=== PATIENT | female | born 1980 | race African-American/Black ===

== ENCOUNTER 2016-12-24 16:55 | Emergency (ER) | payer OTHER ==
[2016-12-24 17:00] VITALS: BP 132/76; PULSE 81; TEMP 98; BMI 38.9
--- NOTE | 2016-12-24 17:29 | PDOC ---
Attending Attestation - Resident Resident Name: Jose Blackmon - HPI HPI: 12/24/16 23:17 36-year-old woman who presents to the emergency department with a long-standing history of dysfunctional uterine bleeding. She was supposed to get a CAT scan done December 11 of abdomen and pelvis, but did not keep her appointment. She has a history of PID, tubo-ovarian abscess and she is to get a CAT scan to rule out those out - Physicial Exam PE: 12/24/16 23:19 36-year-old female presents with chronic vaginal bleeding and some abdominal pain HEENT within normal limits Lungs are clear to auscultation bilaterally CVS regular rate and rhythm S1, S2 Abdomen obese, nontender, nondistended. No rebound or guarding Extremities within normal limits Skin warm, no rashes Neurologically alert and oriented 3, ambulating with ease - Medical Decision Making 12/24/16 17:56 Labs reviewed. Patient is not . CAT scan of her abdomen and pelvis do not find any acute abdominal or pelvic pathology. 12/24/16 23:18
--- NOTE | 2016-12-24 17:58 | PDOC ---
History of Present Illness - General Chief Complaint: Pain Stated Complaint: vag bleed / STOMACH PAIN Time Seen by Provider: 12/24/16 17:13 - History of Present Illness Initial Comments: 12/24/16 17:56 36 yo [id number] with h/o tuboovarian abscess, and PID who presents with metomennorhagia. Pt. endorses heavy menstrual bleeding for past month following absence of menstruation for previous 7 months. Uses 3-4 pads/day. complains of chronic crampy lower abdominal pain. Complains of right sided chest pain Denies N/V, fevers/chillls, wt. loss, constipation/diarrhea, blood in stool, dysuria, urinary incontinence, back pain, flank pain. Pain not alleivated with OTC Tylenol. Sexually active for last 3 months with one male sexual partner. No condom use. Denies h/o STI's. Pt. with h/o caesarean section x 3. No other abdominal surgeries. Pt . reports that she was scheduled to have CT Abdomen performed at outside [facility] ( 12/11/16) for abnormal MRI findings of multiple cysts on right adenexa. She reuqests CT abdomen/pelvis scan. Past History - Past Medical History Allergies/Adverse Reactions: Allergies Allergy/AdvReac Type Severity Reaction Status Date / Time No Known Allergies Allergy Verified 12/24/16 16:56 Home Medications: Ambulatory Orders Wheat Dextrin [Benefiber] 1 each PO TID #0 powd.pack 09/27/15 GI Disorders: Yes (GERD) Disorders: Yes (OVARIAN CYST) - Reproductive History Is Patient Now?: Yes (#): 5 Para: 3 Cervical CA: No Dysfunctional Uterine Bleeding: No Ectopic : No Endometrial CA: No Polycystic Ovaries: No Therapeutic (s) & number: Yes (2) Tubal Ligation: No - Immunization History Immunization Up to Date: Yes - Psycho/Social/Smoking Cessation Hx Anxiety: No Suicidal Ideation: No Smoking History: Never smoked Have you smoked in the past 12 months: No Information on smoking cessation initiated: No Hx Alcohol Use: No Drug/Substance Use Hx: No Substance Use Type: None Review of Systems - Review of Systems Comments:: 12/24/16 18:16 GENERAL/CONSTITUTIONAL: No fever or chills. No weakness. HEAD, EYES, EARS, NOSE AND THROAT: No change in vision. No ear pain or discharge. No sore throat.- CARDIOVASCULAR: + chest pain. No shortness of breath RESPIRATORY: No cough, wheezing, or hemoptysis. GASTROINTESTINAL: + Abdominal pain. No nausea, vomiting, diarrhea or constipation. GENITOURINARY: + Mennorhagia. No dysuria, frequency, or change in urination. MUSCULOSKELETAL: No joint or muscle swelling or pain. No neck or back pain. SKIN: No rash NEUROLOGIC: No headache, vertigo, loss of consciousness, or change in strength/ sensation. ENDOCRINE: No increased thirst. No abnormal weight change HEMATOLOGIC/LYMPHATIC: No anemia, easy bleeding, or history of blood clots. ALLERGIC/IMMUNOLOGIC: No hives or skin allergy. Cardiac (ROS): Yes: Chest Pain ABD/GI: Yes: Abdominal cramping *Physical Exam - Vital Signs Last Vital Signs Temp Pulse Resp BP Pulse Ox 98.0 F 81 16 132/76 100 12/24/16 16:58 12/24/16 16:58 12/24/16 16:58 12/24/16 16:58 12/24/16 16:58 - Physical Exam General Appearance: Yes: Nourished, Appropriately Dressed, Obese HEENT: positive: EOMI, DEANNA, Normal ENT Inspection Neck: positive: Tender, Trachea midline, Normal Thyroid, Supple Respiratory/Chest: positive: Lungs Clear, Normal Breath Sounds Cardiovascular: positive: Regular Rhythm, Regular Rate Gastrointestinal/Abdominal: positive: Normal Bowel Sounds Musculoskeletal: positive: Normal Inspection. negative: CVA Tenderness Extremity: positive: Normal Capillary Refill, Normal Inspection, Normal Range of Motion Integumentary: positive: Normal Color, Dry, Warm ED Treatment Course - LABORATORY CBC & Chemistry Diagram: 12/24/16 18:30 12/24/16 18:30 - RADIOLOGY Radiology Studies Ordered: Category Date Time Status ABDOMEN & PELVIS CT W/O CONTR [CT] Stat CT Scan 12/24/16 17:51 Ordered Medical Decision Making - Medical Decision Making 12/24/16 18:21 36 yo [id number] with h/o tuboovarian abscess, and PID who presents with metomennorhagia. Pt. endorses heavy menstrual bleeding for past month following absence of menstruation for previous 7 months. Bleeding associated with diffuse lower abdominal pain. Physical exam findings, Recently scheduled to have CT Abdomen performed at outside facility ( 12/11/16) for abnormal MRI findings of multiple cysts on right adenexa. She requests CT abdomen/pelvis scan. 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
[2016-12-24 18:38] LABS: BASOPHIL 0.9 % (0-2.0); EOSINOPHIL 2.3 % (0-4.5); MCH 25.8 pg (25.7-33.7); MCHC 32.7 g/dl (32.0-36.0); MEAN PLT VOLUME 7.7 fl (7.5-11.1); NEUTROPHILS 56.2 % (42.8-82.8); PLATELET COUNT 364 K/MM3 (134-434); RDW 14.9 % (11.6-15.6); WHITE BLOOD COUNT 6.8 K/mm3 (4.0-10.0)
[2016-12-24 18:50] LABS: URINE APPEARANCE CLOUDY; URINE BILIRUBIN NEGATIVE (NEGATIVE); URINE BLOOD 3+ (NEGATIVE); URINE COLOR RED; URINE GLUCOSE (UA) NEGATIVE (NEGATIVE); URINE KETONE NEGATIVE (NEGATIVE); URINE LEUK ESTERASE TRACE (NEGATIVE); URINE NITRITE NEGATIVE (NEGATIVE); URINE UROBILINOGEN NEGATIVE mg/dL (0.2-1.0)
[2016-12-24 19:04] LABS: ALBUMIN 3.9 g/dl (3.4-5.0); ANION GAP 7 (8-16); BILIRUBIN,TOTAL 0.2 mg/dL (0.2-1.0); CALCIUM 8.7 mg/dL (8.5-10.1); CO2 26 mmol/L (21-32); CREATININE 0.7 mg/dL (0.55-1.02); GLUCOSE,RANDOM 91 mg/dL (74-106); SGOT/AST 24 U/L (15-37); SGPT/ALT 35 U/L (12-78); TOT PROT 7.2 g/dl (6.4-8.2)
[2016-12-24 19:05] LABS: ALK PHOS 79 U/L (45-117)
[2016-12-24 19:09] LABS: URINE PROTEIN 2+ (NEGATIVE)
[2016-12-24 19:56] LABS: URINE MUCUS RARE; URINE RBC 8462 /hpf (0-3)
--- NOTE | 2016-12-24 23:30 | PDOC ---
*Physical Exam - Vital Signs Last Vital Signs Temp Pulse Resp BP Pulse Ox 98.0 F 81 16 132/76 100 12/24/16 16:58 12/24/16 16:58 12/24/16 16:58 12/24/16 16:58 12/24/16 16:58 ED Treatment Course - LABORATORY CBC & Chemistry Diagram: 12/24/16 18:30 12/24/16 18:30 - ADDITIONAL ORDERS Additional order review: Laboratory Results 12/24/16 12/24/16 12/24/16 18:33 18:33 18:30 Sodium Potassium Chloride Carbon Dioxide Anion Gap BUN Creatinine Creat Clearance w eGFR Random Glucose Calcium Total Bilirubin AST ALT Alkaline Phosphatase Total Protein Albumin Lipase TSH 1.30 Urine Color Red Urine Appearance Cloudy Urine pH 6.0 Ur Specific [place] >= 1.030 H Urine Protein 2+ H Urine Glucose (UA) Negative Urine Ketones Negative Urine Blood 3+ H Urine Nitrite Negative Urine Bilirubin Negative Urine Urobilinogen Negative Ur Leukocyte Esterase Trace Urine RBC 8462 Urine WBC None Ur Epithelial Cells Rare Urine Mucus Rare Urine HCG, Qual Negative 12/24/16 12/24/16 18:30 18:30 Sodium 138 Potassium 3.7 Chloride 105 Carbon Dioxide 26 Anion Gap 7 L BUN 6 L D Creatinine 0.7 D Creat Clearance w eGFR > 60 Random Glucose 91 Calcium 8.7 Total Bilirubin 0.2 D AST 24 D ALT 35 D Alkaline Phosphatase 79 Total Protein 7.2 D Albumin 3.9 D Lipase 243 TSH Urine Color Urine Appearance Urine pH Ur Specific [place] Urine Protein Urine Glucose (UA) Urine Ketones Urine Blood Urine Nitrite Urine Bilirubin Urine Urobilinogen Ur Leukocyte Esterase Urine RBC Urine WBC Ur Epithelial Cells Urine Mucus Urine HCG, Qual 12/24/16 18:30 RBC 4.03 MCV 79.0 L MCHC 32.7 RDW 14.9 MPV 7.7 D Neutrophils % 56.2 D Lymphocytes % 34.0 D Monocytes % 6.6 D Eosinophils % 2.3 D Basophils % 0.9 D - RADIOLOGY Radiology Studies Ordered: Category Date Time Status ABDOMEN & PELVIS CT WITH CONTR [CT] Stat CT Scan 12/24/16 20:10 Completed *DC/Admit/Observation/Transfer Diagnosis at time of Disposition: Pelvic pain Abdominal pain Qualifiers: Abdominal location: lower abdomen, unspecified Qualified Code(s): R10.30 - Lower abdominal pain, unspecified - Discharge Dispostion Disposition: HOME Condition at time of disposition: Stable - Patient Instructions Printed Discharge Instructions: DI for Vaginal Bleeding, DI for Pelvic Pain Additional Instructions: PLEASE FOLLOW UP WITH YOUR [employer]UCC[employer] WORKER and plese take your ct scan with you when you go to the office
--- NOTE | 2016-12-25 11:40 | EKG ---
Test Reason : Blood Pressure : / mmHG Vent. Rate : 070 BPM Atrial Rate : 070 BPM P-R Int : 172 ms QRS Dur : 082 ms QT Int : 426 ms P-R-T Axes : 018 040 012 degrees QTc Int : 460 ms NORMAL SINUS RHYTHM NORMAL ECG NO PREVIOUS ECGS AVAILABLE Confirmed by SEBASTIÁN AHMADI, TUNDE ([id number]) on 12/25/2016 11:40:00 AM Referred By: Confirmed By:TUNDE LOWERY MD
== END 2016-12-25 00:18 | disposition home or self-care (01) ==
LOC: JER 16:55
DX: N92.1 Excessive and frequent menstruation with irregular cycle (principal); Z87.42 Personal history of other diseases of the female genital tract
CPT/HCPCS: 36415; 74177-TC; 80053; 81003; 81015; 83690; 84443; 84703; 85025; 93005; 93010; 99284-25

== ENCOUNTER 2017-01-07 10:28 | Day surgery (SDC) | payer OTHER ==
[2017-01-06 13:18] VITALS: BMI 40.2
[2017-01-07] MEDS ORDERED: PROPOFOL 20 ML ONE ×3 (12:22)
[2017-01-07] MEDS ORDERED: DEXAMETHASONE SOD PHOSPHATE 4 MG/1 ML VIAL ONE (12:23)
[2017-01-07] MEDS ORDERED: KETOROLAC TROMETHAMINE 30 MG/1 ML VIAL ONE ×2 (12:23→12:43)
[2017-01-07] MEDS ORDERED: MIDAZOLAM HCL 2 MG/2 ML SINGLE DOSE VIAL ONE ×2 (12:27)
[2017-01-07] MEDS ORDERED: oxyCODONE HCL 5 MG TABLET PO PRN ×2 (12:33→13:48)
[2017-01-07] MEDS ORDERED: ONDANSETRON 4 MG/2 ML VIAL IVPUSH PRN (12:33)
[2017-01-07] MEDS ORDERED: PROMETHAZINE HCL 25 MG/1 ML VIAL IVPUSH PRN (12:33)
[2017-01-07] MEDS ORDERED: LACTATED RINGERS SOLUTION 1,000 ML IV SCH (12:45)
--- NOTE | 2017-01-07 12:53 | HP ---
Past Medical History - Primary Care Physician PCP:: Jay Munoz - Admission Chief Complaint: menometrorrhagia, anemia, r/o EM polyp, lt bartholin cyst History of Present Illness: 36yo f with hx of menometrorrhagia, anemia, with visits to ER for heavy vaginal bleding admitted for hysteroscopy D&C polypectomy also has 4 cm LT bartholin cyst for I&D History Source: Patient Limitations to Obtaining History: No Limitations - Past Medical History Heme/Onc: Yes: Anemia - Past Surgical History Past Surgical History: Yes: Hx Myomectomy: No Hx Transabdominal Cerclage: No - Smoking History Smoking history: Never smoked Have you smoked in the past 12 months: No - Alcohol/Substance Use Hx Alcohol Use: Yes (socially) - Social History Usual Living Arrangement: Yes: With Spouse History of Recent Travel: No Home Medications - Allergies Allergies/Adverse Reactions: Allergies Allergy/AdvReac Type Severity Reaction Status Date / Time No Known Allergies Allergy Verified 01/07/17 11:02 - Home Medications Home Medications: Ambulatory Orders Provera 10 mg PO DAILY 01/06/17 Ibuprofen [Motrin -] 600 mg PO QID #28 tablet 01/07/17 Review of Systems - Review of Systems Constitutional: reports: No Symptoms Eyes: reports: No Symptoms HENT: reports: No Symptoms Neck: reports: No Symptoms Cardiovascular: reports: No Symptoms Respiratory: reports: No Symptoms Gastrointestinal: reports: No Symptoms Genitourinary: reports: Vaginal Bleeding Breasts: reports: No Symptoms Reported Musculoskeletal: reports: No Symptoms Integumentary: reports: No Symptoms Neurological: reports: No Symptoms Endocrine: reports: No Symptoms Hematology/Lymphatic: reports: No Symptoms Psychiatric: reports: No Symptoms Physical Exam-DENTAL OFFICE COORDINATOR Vital Signs: Vital Signs Temperature 98.5 F 01/07/17 11:02 Pulse Rate 84 01/07/17 11:02 Respiratory Rate 16 01/07/17 11:02 Blood Pressure 126/63 01/07/17 11:02 O2 Sat by Pulse Oximetry (%) 99 01/07/17 11:02 Constitutional: Yes: Well Nourished, No Distress, Calm Eyes: Yes: WNL, Conjunctiva Clear, EOM Intact HENT: Yes: WNL, Atraumatic, Normocephalic Neck: Yes: WNL, Supple, Trachea Midline Cardiovascular: Yes: WNL, Regular Rate and Rhythm Respiratory: Yes: WNL, Regular, CTA Bilaterally Gastrointestinal: Yes: WNL ...Rectal Exam: Yes: WNL Renal/: Yes: WNL External Genitalia: Yes: Normal Internal Exam Deferred: No Vaginal Exam: Yes: Normal Cervix: Yes: Normal Uterus: Yes: Normal Adnexa: Not Palpable: Left, Right Breast(s): Yes: WNL Musculoskeletal: Yes: WNL Extremities: Yes: WNL Edema: No Integumentary: Yes: WNL Neurological: Yes: WNL, Alert, Oriented ...Motor Strength: WNL Psychiatric: Yes: WNL, Alert, Oriented Problem List - Problem (1) Menometrorrhagia Code(s): N92.1 - EXCESSIVE AND FREQUENT MENSTRUATION WITH IRREGULAR CYCLE (2) Cyst of left Bartholin's gland Code(s): N75.0 - CYST OF BARTHOLIN'S GLAND Assessment/Plan r/o EM polyp, submucous myoma, txed with provera did not stop bleeding , hx anemia admitted for hysteroscopy D&C, I&D of LT bartholin cyst. rba discussed
[2017-01-07] MEDS ORDERED: MINERAL OIL/PETROLATUM,WHITE 3.5 GM TUBE ONE (13:15)
[2017-01-07] MEDS ORDERED: IBUPROFEN 600 MG TABLET (FP) PO PRN (13:48)
[2017-01-07] MEDS ORDERED: IBUPROFEN 800 MG/8 ML IJ IVPB PRN (13:48)
[2017-01-07] MEDS ORDERED: ONDANSETRON 4 MG/2 ML VIAL IVPB PRN (13:48)
[2017-01-07] MEDS ORDERED: ELECTROLYTE-148 SOLN 1,000 ML IV SCH (14:00)
[2017-01-07 15:20] VITALS: PULSE 76; TEMP 98
[2017-01-07 15:47] VITALS: BP 130/75
[2017-01-07] MEDS ORDERED: oxyCODONE HCL 5 MG TABLET ONE (15:50)
--- NOTE | 2017-01-07 16:05 | OP ---
DATE OF OPERATION: 01/07/2017 PREOPERATIVE DIAGNOSES: Menometrorrhagia, anemia, and left Bartholin cyst. POSTOPERATIVE DIAGNOSES: Menometrorrhagia, anemia, and left Bartholin cyst. PROCEDURE: Incision and drainage of the left Bartholin cyst, hysteroscopy, dilatation and curettage. SURGEON: Jay Munoz MD ANESTHESIA: General. ESTIMATED BLOOD LOSS: 50 mL DESCRIPTION OF OPERATION: Patient was taken to the operating room. Under adequate general anesthesia in dorsal lithotomy position, examination under anesthesia revealed a 4-cm left Bartholin cyst. Vagina was normal. Cervix was clean; no lesion. Uterus was prominent and enlarged, approximately 10-12 weeks' size. Adnexa: No masses were palpable. Then, with a weighted speculum in the vagina, anterior lip of the cervix was grasped, and then, cervix was slightly dilated. Hysteroscope was introduced. Visualization of the endocervical canal appeared to be normal. Endometrium appeared to be irregular and hypertrophic, but no polyp or fibroid was seen. Both cornual regions were identified. No other abnormality was seen. Then, the hysteroscope was withdrawn. The cervix was gradually dilated with Hegar dilators, and then, endometrium was curetted. Large amount of tissue was obtained. Then, the left Bartholin area in the most-dependent area: A 2-cm incision was made with a knife, and then, about 15 mL of yellowish material was drained from the cyst. Then, a Wendy clamp was inserted into the incision, and then, the loculation was lysed. Then, 4 interrupted sutures of 3-0 Vicryl were placed at the edge of the cyst for hemostasis. Patient tolerated the procedure well, left the OR in good condition. Mohan [id number]
--- NOTE | 2017-01-10 12:54 | PATH ---
Surgical Pathology Report Patient Name: GLORIA MARY [facility]. Rec. #: [id number] /Age/Gender: 1980 (Age: 36) / F Account: [id number] Location: [facility] SURGICAL Taken: 01/07/2017 Received: 01/08/2017 Reported: 01/10/2017 Physicians: Jay Munoz M.D. Specimen(s) Received ENDOMETRIAL CURETTINGS Clinical History Menorrhagia, cyst of Bartholin's gland Final Diagnosis ENDOMETRIUM, CURETTAGE: POLYPOID FRAGMENTS OF PREDOMINANTLY INACTIVE AND FOCALLY DYSSYNCHRONOUS TYPE ENDOMETRIUM WITH STROMAL AND FOCAL GLANDULAR BREAKDOWN CHANGES AND STROMAL CHANGES SUGGESTIVE OF EXOGENOUS HORMONE EFFECT. FRAGMENTS OF BENIGN ENDOCERVICAL TISSUE. FRAGMENTS OF BENIGN SQUAMOUS EPITHELIUM. Comment: Immunohistochemical staining for CD138 [facility] [place] [place] ([id number]) on block #3 and interpreted [facility] does not show definitive plasma cells in the stroma. Electronically Signed Shayan Dominguez M.D. Gross Description Received in formalin labeled "endometrial curettings" is a 4.8 x 4.0 x 0.3 cm aggregate of lizarraga soft tissue fragments admixed with blood clot. The formalin is filtered and the specimen is entirely submitted in 5 cassettes. /01/08/2017 [facility]
== END 2017-01-07 16:34 | disposition home or self-care (01) ==
LOC: JASU-SURG 10:28
PROVIDERS: ATTEND Obstetrics & Gynecology
PROC: 0U9L00Z Drainage of Vestibular Gland with Drainage Device, Open Approach (ICD-10-PCS; principal; 2017-01-07 12:00)
PROC: 0UDB8ZX Extraction of Endometrium, Via Natural or Artificial Opening Endoscopic, Diagnostic (ICD-10-PCS; 2017-01-07 12:00)
DX: N92.1 Excessive and frequent menstruation with irregular cycle (principal); D64.9 Anemia, unspecified; N75.0 Cyst of Bartholin's gland
CPT/HCPCS: 84703; 86850; 86900; 86901; 87070; 87205; 88305-TC; 94760

== ENCOUNTER 2020-03-28 23:17 | Inpatient (IN) | payer OTHER ==
[2020-03-29 00:29] LABS: BASO % 0.9 % (0-2.0); HEMATOCRIT 19.5 % (32.4-45.2); LYMPH % 28.9 % (8-40); MCH 22.5 pg (25.7-33.7); MCHC 31.5 g/dl (32.0-36.0); MEAN CELL VOLUME 71.4 fl (80-96); MEAN PLT VOLUME 6.9 fl (7.5-11.1); MONO % 6.5 % (3.8-10.2); NEUT % 61.7 % (42.8-82.8); PLATELET COUNT 474 K/MM3 (134-434); RBC 2.73 M/mm3 (3.60-5.2); RDW 16.9 % (11.6-15.6); WHITE BLOOD COUNT 9.1 K/mm3 (4.0-10.0)
[2020-03-29 00:37] LABS: HEMOGLOBIN 6.1 GM/dL (10.7-15.3)
[2020-03-29 00:45] LABS: CHLORIDE 105 mmol/L (98-107); POTASSIUM 3.4 mmol/L (3.5-5.1); SODIUM 138 mmol/L (136-145)
[2020-03-29 00:47] LABS: ALBUMIN 3.8 g/dl (3.4-5.0); ANION GAP 8 MMOL/L (8-16); BLOOD UREA NITROGEN 7.6 mg/dL (7-18); CALCIUM 8.7 mg/dL (8.5-10.1); CO2 25 mmol/L (21-32); GLUCOSE,RANDOM 103 mg/dL (74-106)
[2020-03-29 00:50] LABS: CREATININE 0.9 mg/dL (0.55-1.3); SGOT/AST 26 U/L (15-37); SGPT/ALT 39 U/L (13-61)
[2020-03-29 00:52] LABS: BILIRUBIN,TOTAL 0.2 mg/dL (0.2-1); TOT PROT 7.3 g/dl (6.4-8.2)
[2020-03-29 00:53] LABS: ALK PHOS 78 U/L (45-117)
[2020-03-29] MEDS ORDERED: POTASSIUM CHLORIDE TABS 20 MEQ TABLET.ER (FP) PO ONE ×2 (02:12→03:20)
[2020-03-29] MEDS ORDERED: MELATONIN 5 MG TABLETS PO PRN (03:18)
[2020-03-29 04:29] LABS: EPI CELLS 24 /uL (0-25.1); HYALINE CASTS 2 /uL (0-3.1); PH,URINE 5.5 (5.0-8.0); URINE APPEARANCE CLOUDY; URINE BACTERIA >9,000 /uL (0-1359); URINE BILIRUBIN NEGATIVE (NEGATIVE); URINE COLOR YELLOW; URINE GLUCOSE (UA) NEGATIVE (NEGATIVE); URINE KETONE NEGATIVE (NEGATIVE); URINE LEUK ESTERASE TRACE (NEGATIVE); URINE NITRITE POSITIVE (NEGATIVE); URINE PROTEIN 2+ (NEGATIVE); URINE RBC 5922 /uL (0-23.9); URINE UROBILINOGEN 0.2 mg/dL (0.2-1.0); URINE WBC 29 /uL (0-25.8)
[2020-03-29 08:57] VITALS: BMI 38.8
[2020-03-29] MEDS ORDERED: FLU VACCINE (FLULAVAL) PF 60 MCG/0.5 ML SYRINGE 2020-2021 IM ONE (10:00)
[2020-03-29 11:20] LABS: HEMATOCRIT 22.5 % (32.4-45.2); HEMOGLOBIN 7.1 GM/dL (10.7-15.3); MCH 23.2 pg (25.7-33.7); MCHC 31.4 g/dl (32.0-36.0); MEAN CELL VOLUME 73.9 fl (80-96); PLATELET COUNT 454 K/MM3 (134-434); RBC 3.05 M/mm3 (3.60-5.2); RDW 18.5 % (11.6-15.6); WHITE BLOOD COUNT 7.5 K/mm3 (4.0-10.0)
[2020-03-29 11:33] LABS: PROTHROMBIN TIME (PATIENT) 12.1 SEC (9.7-13.0)
[2020-03-29 11:36] LABS: ACTIVATED PTT 31.9 SECONDS (25.2-36.5)
[2020-03-29] MEDS: ACETAMINOPHEN 325 MG TABLET (FP) PO PRN ×2 (12:24→18:08)
[2020-03-29 12:34] LABS: POTASSIUM 3.8 mmol/L (3.5-5.1)
[2020-03-29 12:36] LABS: CALCIUM 8.9 mg/dL (8.5-10.1); MAGNESIUM 2.3 mg/dL (1.8-2.4)
[2020-03-29 12:37] LABS: ALBUMIN 3.6 g/dl (3.4-5.0)
[2020-03-29 12:39] LABS: CREATININE 0.8 mg/dL (0.55-1.3)
[2020-03-29 12:40] LABS: PHOSPHOROUS 3.1 mg/dL (2.5-4.9)
[2020-03-29 12:41] LABS: BILIRUBIN,TOTAL 0.8 mg/dL (0.2-1); TOT PROT 7.1 g/dl (6.4-8.2)
[2020-03-29] MEDS ORDERED: IRON SUCROSE INJECTION 300 MG in SODIUM CHLORIDE 235 ML IVPB ONE (14:00)
[2020-03-29] MEDS ORDERED: ACETAMINOPHEN WITH CODEINE 300MG/30MG TABLET PO ONE (17:40)
[2020-03-29] MEDS ORDERED: traMADol HCL 50 MG TABLET PO PRN (18:21)
[2020-03-29 22:00] LABS: HEMATOCRIT 24.6 % (32.4-45.2); HEMOGLOBIN 7.9 GM/dL (10.7-15.3); MCH 24.1 pg (25.7-33.7); MCHC 32.1 g/dl (32.0-36.0); MEAN CELL VOLUME 75.2 fl (80-96); MEAN PLT VOLUME 6.5 fl (7.5-11.1); PLATELET COUNT 392 K/MM3 (134-434); RBC 3.27 M/mm3 (3.60-5.2); RDW 18.5 % (11.6-15.6); WHITE BLOOD COUNT 6.7 K/mm3 (4.0-10.0)
[2020-03-30 04:57] VITALS: BP 103/62; PULSE 77; TEMP 97.8
[2020-03-30 08:33] LABS: HEMATOCRIT 23.8 % (32.4-45.2); HEMOGLOBIN 7.7 GM/dL (10.7-15.3); MCH 23.8 pg (25.7-33.7); MCHC 32.2 g/dl (32.0-36.0); MEAN CELL VOLUME 73.8 fl (80-96); PLATELET COUNT 396 K/MM3 (134-434); RBC 3.22 M/mm3 (3.60-5.2); RDW 18.5 % (11.6-15.6); WHITE BLOOD COUNT 7.6 K/mm3 (4.0-10.0)
[2020-03-30] MEDS ORDERED: DOCUSATE SODIUM 100 MG CAPSULE (FP) PO SCH (10:00)
[2020-03-30] MEDS ORDERED: FERROUS SO4 325 MG TABLET (FP) PO SCH (10:00)
[2020-03-30] MEDS ORDERED: traMADol HCL 50 MG TABLET PO ONE (10:21)
[2020-03-30] MEDS ORDERED: PT OWN MED DRAWER 7, Y5N ONE ×2 (11:14→13:48)
[2020-03-30] MEDS: ACETAMINOPHEN 325 MG TABLET (FP) PO PRN (11:17)
[2020-03-30] MEDS ORDERED: TRIMETHOBENZAMIDE HCL 300 MG CAPSULE PO PRN (12:41)
[2020-03-30] MEDS ORDERED: MAG HYDROX/AL HYDROX/SIMETH -MYLANTA- ORAL SUSPENSION PO ONE (13:31)
[2020-03-30] MEDS ORDERED: ACETAMINOPHEN 1000 MG/100 ML VIAL (NON FORMULARY) IVPB ONE (15:28)
[2020-03-30] MEDS ORDERED: SUMAtriptan SUCCINATE 25 MG TABLET PO ONE (17:42)
[2020-03-30 18:13] LABS: BASO % 0.3 % (0-2.0); HEMATOCRIT 27.9 % (32.4-45.2); HEMOGLOBIN 8.9 GM/dL (10.7-15.3); LYMPH % 6.5 % (8-40); MCH 24.5 pg (25.7-33.7); MCHC 31.9 g/dl (32.0-36.0); MEAN CELL VOLUME 76.8 fl (80-96); MEAN PLT VOLUME 7.1 fl (7.5-11.1); MONO % 3.1 % (3.8-10.2); NEUT % 90.1 % (42.8-82.8); PLATELET COUNT 374 K/MM3 (134-434); RBC 3.63 M/mm3 (3.60-5.2); RDW 19.5 % (11.6-15.6); WHITE BLOOD COUNT 12.9 K/mm3 (4.0-10.0)
== END 2020-03-30 21:30 | disposition home or self-care (01) | DRG 812 ==
LOC: JER 23:17 → JERBED 03-29 01:30 → J6S 03-29 07:59
PROVIDERS: ADMIT Hospitalist
PROC: 30233N1 Transfusion of Nonautologous Red Blood Cells into Peripheral Vein, Percutaneous Approach (ICD-10-PCS; principal; 2020-03-29)
DX: D62 Acute posthemorrhagic anemia (principal); N93.9 Abnormal uterine and vaginal bleeding, unspecified; D50.9 Iron deficiency anemia, unspecified
CPT/HCPCS: 36415; 36430; 36511; 71046-TC-FY; 76830-TC; 80053; 81003; 82728; 83540; 83550; 83735; 84100; 84702; 85025; 85027; 85610; 85730; 86850; 86870; 86900; 86901; 86902; 86922; 93005; 93010; 99285-25; C9803; G0008; J0131; J1756; P9016; P9058; Q2036; U0003

== ENCOUNTER 2020-04-06 05:12 | Day surgery (SDC) | payer OTHER ==
[2020-04-05 15:56] VITALS: BMI 37.6
[2020-04-06] MEDS ORDERED: MIDAZOLAM HCL 2 MG/2 ML SINGLE DOSE VIAL ONE (14:34)
[2020-04-06] MEDS ORDERED: PROPOFOL 20 ML ONE ×2 (14:34)
[2020-04-06] MEDS ORDERED: ceFAZolin SODIUM 1 GM VIAL IVPB ONE (14:50)
[2020-04-06] MEDS ORDERED: DEXAMETHASONE SOD PHOSPHATE 4 MG/1 ML VIAL ONE (14:56)
[2020-04-06] MEDS ORDERED: ONDANSETRON 4 MG/2 ML VIAL ONE (14:56)
[2020-04-06] MEDS ORDERED: KETOROLAC TROMETHAMINE 30 MG/1 ML VIAL ONE (14:57)
[2020-04-06] MEDS ORDERED: ceFAZolin SODIUM 1 GM VIAL ONE (14:59)
[2020-04-06] MEDS ORDERED: SODIUM CHLORIDE 0.9% P/F 10 ML VIAL IJ ONE (14:59)
[2020-04-06] MEDS ORDERED: oxyCODONE HCL 5 MG TABLET PO PRN ×2 (15:40→15:41)
[2020-04-06] MEDS ORDERED: PROMETHAZINE HCL 25 MG/1 ML VIAL IVPB PRN (15:40)
[2020-04-06] MEDS ORDERED: ONDANSETRON 4 MG/2 ML VIAL IVPUSH PRN ×2 (15:40→15:41)
[2020-04-06] MEDS ORDERED: IBUPROFEN 800 MG/8 ML IJ IVPB PRN (15:41)
[2020-04-06] MEDS ORDERED: IBUPROFEN 600 MG TABLET (FP) PO PRN (15:41)
[2020-04-06] MEDS ORDERED: ELECTROLYTE-148 SOLN 1,000 ML IV SCH (15:45)
[2020-04-06] MEDS ORDERED: LACTATED RINGERS SOLUTION 1,000 ML IV SCH (15:45)
[2020-04-06] MEDS ORDERED: ACETAMINOPHEN INJECTION 100 ML IVPB ONE (16:23)
[2020-04-06] MEDS ORDERED: ACETAMINOPHEN 1000 MG/100 ML VIAL (NON FORMULARY) IVPB ONE ×2 (16:26→16:34)
[2020-04-06] MEDS ORDERED: HYDROmorphone HCl 2 MG/ML VIAL IVPUSH ONE ×3 (16:34→16:59)
[2020-04-06] MEDS ORDERED: HYDROmorphone HCl 2 MG/ML VIAL ONE (16:36)
[2020-04-06 18:21] VITALS: BP 127/76; PULSE 83; TEMP 98
== END 2020-04-06 18:48 | disposition home or self-care (01) ==
LOC: JASU-SURG 05:12
PROVIDERS: ATTEND Obstetrics & Gynecology
PROC: 0U5B8ZZ Destruction of Endometrium, Via Natural or Artificial Opening Endoscopic (ICD-10-PCS; principal; 2020-04-06 15:30)
DX: N92.1 Excessive and frequent menstruation with irregular cycle (principal); D64.9 Anemia, unspecified; N80.0 Endometriosis of uterus
CPT/HCPCS: 36415; 84703; 86850; 86870; 86900; 86901; 86902; 94760; J0131

== ENCOUNTER 2020-06-28 21:27 | Emergency (ER) | payer OTHER ==
[2020-06-28 21:34] VITALS: BP 133/71; PULSE 97; TEMP 98.5; BMI 34.4
[2020-06-28] MEDS ORDERED: ACETAMINOPHEN 1000 MG/100 ML VIAL (NON FORMULARY) IVPB ONE (22:02)
[2020-06-28 22:41] LABS: EOS % 2.3 % (0-4.5); HEMATOCRIT 30.5 % (32.4-45.2); HEMOGLOBIN 9.8 GM/dL (10.7-15.3); LYMPH % 20.4 % (8-40); MCH 24.2 pg (25.7-33.7); MCHC 32.2 g/dl (32.0-36.0); MEAN CELL VOLUME 75.2 fl (80-96); MEAN PLT VOLUME 6.9 fl (7.5-11.1); MONO % 7.1 % (3.8-10.2); NEUT % 69.2 % (42.8-82.8); PLATELET COUNT 488 K/MM3 (134-434); RBC 4.05 M/mm3 (3.60-5.2); RDW 17.3 % (11.6-15.6)
[2020-06-28] MEDS ORDERED: ACETAMINOPHEN INJECTION 100 ML IVPB ONE (22:47)
[2020-06-28 23:09] LABS: POTASSIUM 3.7 mmol/L (3.5-5.1)
[2020-06-28 23:11] LABS: CALCIUM 9.1 mg/dL (8.5-10.1)
[2020-06-28 23:12] LABS: ALBUMIN 3.4 g/dl (3.4-5.0)
[2020-06-28 23:15] LABS: CREATININE 0.7 mg/dL (0.55-1.3)
[2020-06-28 23:16] LABS: BILIRUBIN,TOTAL 0.2 mg/dL (0.2-1); TOT PROT 7.4 g/dl (6.4-8.2)
[2020-06-29] MEDS ORDERED: DEXAMETHASONE 4 MG TABLET (FP) PO ONE (04:10)
[2020-06-29] MEDS ORDERED: DEXAMETHASONE 4 MG TABLET (FP) ONE (04:23)
[2020-06-29 04:41] LABS: EPI CELLS >36 /uL (0-25.1); HYALINE CASTS 4 /uL (0-3.1); PH,URINE 6.5 (5.0-8.0); URINE APPEARANCE CLEAR; URINE BACTERIA >9,000 /uL (0-1359); URINE BILIRUBIN NEGATIVE (NEGATIVE); URINE COLOR YELLOW; URINE GLUCOSE (UA) NEGATIVE (NEGATIVE); URINE KETONE NEGATIVE (NEGATIVE); URINE LEUK ESTERASE NEGATIVE (NEGATIVE); URINE NITRITE POSITIVE (NEGATIVE); URINE PROTEIN NEGATIVE (NEGATIVE); URINE RBC 13 /uL (0-23.9); URINE UROBILINOGEN 0.2 mg/dL (0.2-1.0); URINE WBC 49 /uL (0-25.8)
== END 2020-06-29 04:44 | disposition home or self-care (01) ==
LOC: SUPCPDRO 21:27 → JER 21:27
PROC: 3E033NZ Introduction of Analgesics, Hypnotics, Sedatives into Peripheral Vein, Percutaneous Approach (ICD-10-PCS; principal; 2020-06-28)
DX: R10.9 Unspecified abdominal pain (principal)
CPT/HCPCS: 36415; 73610-TC-LT-FY; 73630-TC-LT; 74018-TC-FY; 74177-TC; 80053; 81003; 84703; 85025; 87086; 87186; 93005; 93010; 99285-25; J0131